=== PATIENT | male | born 1950 | race Caucasian/White ===

== ENCOUNTER 2016-11-22 11:33 | Inpatient (IN) | payer MEDICARE, SELFPAY | END 2016-11-27 13:05 | disposition home or self-care (01) | DRG 190 | LOC: ER 11:33 → MS 14:09 | PROVIDERS: ADMIT Family Medicine | DX: J44.0 Chronic obstructive pulmonary disease with (acute) lower respiratory infection (principal); I50.23 Acute on chronic systolic (congestive) heart failure; J20.9 Acute bronchitis, unspecified; J44.1 Chronic obstructive pulmonary disease with (acute) exacerbation; E86.0 Dehydration; I11.0 Hypertensive heart disease with heart failure; I25.10 Atherosclerotic heart disease of native coronary artery without angina pectoris; I25.2 Old myocardial infarction; E78.5 Hyperlipidemia, unspecified; E03.9 Hypothyroidism, unspecified; G89.29 Other chronic pain; H54.41 Blindness, right eye, normal vision left eye; K59.00 Constipation, unspecified; Z80.9 Family history of malignant neoplasm, unspecified; Z99.81 Dependence on supplemental oxygen; Z79.899 Other long term (current) drug therapy; Z79.891 Long term (current) use of opiate analgesic; Z88.5 Allergy status to narcotic agent ==

== ENCOUNTER 2016-11-22 11:33 | Emergency (ER) | payer MEDICARE, SELFPAY ==
[~2016-11-22 11:33] MED LIST: ALBUTEROL2.5 MG/3 M IH; ALDACTONE25 MG PO; ASPIRIN81 MG PO; CLARITIN10 MG PO; COREG25 MG PO; CRESTOR20 MG PO; FEOSOL325 MG PO; FLONASE 0.05% N16 GM; GLIPIZIDE XL5 MG PO; HYDROCODON-ACE1 EAC6 PO; LASIX20 MG PO; LYRICA50 MG PO; NITROQUICK0.4 MG SL; PACERONE100 MG PO; PEPCID20 MG PO; SYNTHROID25 MCG PO; VISTARIL25 MG PO; ZOLOFT25 MG PO
== END 2016-11-22 14:09 | disposition other institution (70) ==
LOC: ER 11:33
DX: J44.0 Chronic obstructive pulmonary disease with (acute) lower respiratory infection (principal); J20.9 Acute bronchitis, unspecified; J44.1 Chronic obstructive pulmonary disease with (acute) exacerbation; R53.1 Weakness; I50.9 Heart failure, unspecified; Z99.81 Dependence on supplemental oxygen; I25.10 Atherosclerotic heart disease of native coronary artery without angina pectoris; I25.2 Old myocardial infarction; E78.5 Hyperlipidemia, unspecified; E03.9 Hypothyroidism, unspecified; G89.29 Other chronic pain; H54.41 Blindness, right eye, normal vision left eye; Z96.643 Presence of artificial hip joint, bilateral; Z95.810 Presence of automatic (implantable) cardiac defibrillator; E11.9 Type 2 diabetes mellitus without complications; Z95.5 Presence of coronary angioplasty implant and graft; F17.210 Nicotine dependence, cigarettes, uncomplicated; Z88.5 Allergy status to narcotic agent
CPT/HCPCS: 99284; 99285-25